=== PATIENT | female | born 1995 | race Caucasian/White ===

== ENCOUNTER 2017-06-18 12:58 | Emergency (ER) | payer BC ==
--- NOTE | 2017-06-18 13:52 | EDPHY ---
H & P Stated Complaint: Thinks ? glass working it's way out of scar on L upper leg from last year Time Seen by Provider: 06/18/17 13:47 - Personal History LMP (Females 10-55): IUD In Place Current Tetanus Diphtheria and Acellular Pertussis (TDAP): Yes Tetanus Vaccine Date: < 10 years - Medical/Surgical History Hx Asthma: No Hx Chronic Respiratory Disease: No Hx Diabetes: No Hx Cardiac Disease: No Hx Renal Disease: No Hx Cirrhosis: No Hx Alcoholism: No Hx HIV/AIDS: No Hx Splenectomy or Spleen Trauma: No Other PMH: healthy - Social History Smoking Status: Never smoked Constitutional: Initial Vital Signs Temperature (C) 36.9 C 06/18/17 13:03 Heart Rate 79 06/18/17 13:03 Respiratory Rate 16 06/18/17 13:03 Blood Pressure 113/63 06/18/17 13:03 O2 Sat (%) 97 06/18/17 13:03 O2 Delivery Mode Room Air Allergies/Adverse Reactions: acetaminophen [From Percocet] Allergy (Verified 06/18/17 12:59) oxycodone HCl [From Percocet] Allergy (Verified 06/18/17 12:59) Home Medications: Medication Instructions Recorded NK [No Known Home Meds] 10/01/14 Medical Decision Making ED Course/Re-evaluation: CHIEF COMPLAINT: Foreign body left buttock HISTORY OF PRESENT ILLNESS: This patient is a healthy 22 year old female who presents with a suspected piece of glass embedded in her left buttock secondary to an injury one year ago. She had a vasovagal syncopal episode after a nose piercing and fell through a window. A laceration to her left buttock was repaired at an urgent care in [place] at the time of the incident. Since that time, she has noted increasing discomfort at the area of the laceration, which she initially attributed to a buildup of scar tissue. In the last week, she noted a possible foreign body sensation and some fluid discharge from one area of her scar. Her mother looked and noted a piece of glass may remain embedded in the patient's tissue. Patient denies fever, erythema, purulent discharge, warmth around the site, or other associated symptoms. REVIEW OF SYSTEMS: A 10 point review of systems was performed and is negative with the exception of the elements mentioned in the history of present illness. PHYSICAL EXAM: HR, BP, O2 Sat, RR. Temp noted General Appearance: Alert, well hydrated, appropriate, and non-toxic appearing. Head: Atraumatic without scalp tenderness or obvious injury Eyes: COURTNEY Throat: Mucus membranes moist. Neck: Supple, nontender, no lymphadenopathy. Respiratory: No retractions, no distress. Cardiovascular: Regular rate and rhythm. Good capillary refill all extremities. Musculoskeletal: Normal active ROM of all extremities, atraumatic. Neurological: Alert, appropriate, and interactive. Nonfocal neuro exam. Skin: 4cm scar on the left gluteal region, evidence of foreign body beneath skin. No rashes, good turgor, no nodules on palpation. Past medical history: Denies. Past surgical history: Noncontributory Family history: Noncontributory. Social history: Student at [employer]. Mother at bedside. Originally from [place]. DIAGNOSTICS/PROCEDURES/CRITICAL CARE TIME: Foreign body removal. The glass beneath the skin was located under a 4cm area of scaring on the the left gluteal region. Risks, benefits, alternatives discussed with the patient and consent obtained. The area was prepped and draped in sterile fashion. The patient received local anesthesia with 1% lidocaine with epinephrine. A 2.5cm incision was performed with a #11 blade and a pyramidal chunk of glass 2.5cm x 1cm was removed. The wound was irrigated and closed with Mastisol and steri- strips. The patient tolerated the procedure well. The procedure was performed by myself. DIFFERENTIAL DIAGNOSIS: Includes but not limited to soft tissue foreign body, granuloma, abscess. MEDICAL DECISION [id number] y/o female presents with foreign body embedded under the skin in her left gluteal region secondary to a fall through a window one year ago. Exam reveals presence of a hard foreign body under the patient's scar. Plan for foreign body removal. See procedure note above. Glass foreign body successfully removed as detailed above. Closed wound with steri-strips as the patient plans to participate in a track meet tomorrow and travel to [place] for spring. Plan to discharge home in good condition. The patient will follow up with Dr. Daley, plastic surgeon, for scar revision. Return precautions including infection precautions discussed. She and her mother are comfortable with this plan. Departure - Departure Disposition: Home, Routine, Self-Care Clinical Impression: Foreign body of buttock Qualifiers: Encounter type: initial encounter Qualified Code(s): S30.850A - Superficial foreign body of lower back and pelvis, initial encounter Condition: Good Instructions: Soft Tissue Foreign Body (ED) Additional Instructions: 1. Follow up with Dr. Daley for scar revision. 2. Return to the Emergency Department for fever, redness, discharge from wound, increasing pain or other worsening of condition. Referrals: Yuli Mcclellan MD [Primary Care Provider] - As per Instructions Kareem Daley MD [Medical Doctor] - As per Instructions Report Scribed for: Marcio Aguilar Report Scribed by: Debi Williamson Date of Report: 06/18/17 Time of Report: 14:43
[2017-06-18 14:50] VITALS: BP 128/62; PULSE 68; RESP 14; TEMP 98.2; O2SAT 96
== END 2017-06-18 14:50 | disposition home or self-care (01) ==
PROC: 0JC Subcutaneous Tissue and Fascia, Extirpation (ICD-10-PCS; principal; 2017-06-18)
DX: S30.850A Superficial foreign body of lower back and pelvis, initial encounter (principal); W18.02XA Striking against glass with subsequent fall, initial encounter